=== PATIENT | male | born 1935 | race Caucasian/White ===

== ENCOUNTER 2017-03-22 02:30 | Emergency (ER) | payer MEDICARE ==
[2017-03-22 03:17] LABS: #Basophils 0.1 thou/uL (0.0-0.2); #Eosinphils 0.2 thou/uL (0.0-0.7); #Lymphocytes 2.1 thou/uL (1.20-3.40); #Monocytes 0.7 thou/uL (0.11-0.59); #Neutrophils 3.1 thou/uL (1.40-6.50); %Basophils 1.1 % (0.0-1.0); %Eosinophils 2.6 % (0.0-10.0); %Lymphocytes 34.3 % (21.0-51.0); %Monocytes 11.5 % (0.0-10.0); %Neutrophils 50.5 % (42.0-75.0); Mean Corpuscular HGB CONC 33.1 g/dL (32.0-36.0); Mean Corpuscular Hemoglobin 31.9 pg (27.0-31.0); Mean Corpuscular Volume 96.6 fl (80.0-94.0); Mean Platelet Volume 7.3 fL (7.4-10.4); Platelet Count 213 thou/uL (130-400); RBC Distribution Width 11.7 % (11.5-14.5); Red Blood Cell (RBC) Count 4.69 mill/uL (4.70-6.10); White Blood Cell (WBC) Count 6.1 thou/uL (4.8-10.8)
[2017-03-22 03:40] LABS: ALT (SGPT) 14 U/L (8-55); AST (SGOT) 18 U/L (5-34); Albumin 3.6 g/dL (3.4-4.8); Alkaline Phosphatase 92 U/L (40-150); Anion Gap 9 mmol/L (10-20); BUN (Urea Nitrogen) 13 mg/dL (8.4-25.7); CK (CPK) 95 U/L (30-200); Calc. Creatinine Clearance 0 mL/min (70-130); Calcium 9.1 mg/dL (7.8-10.44); Carbon Dioxide 28 mmol/L (23-31); Chloride 107 mmol/L (98-107); Estimated GFR-MDRD Greater than 90; Globulin 2.6 g/dL (2.4-3.5); Glucose 96 mg/dL (83-110); Potassium 4.1 mmol/L (3.5-5.1); Protein, Total 6.2 g/dL (5.8-8.1); Sodium 140 mmol/L (136-145)
[2017-03-22 03:44] LABS: CKMB 3.4 ng/mL (0-6.6); Troponin I Less than 0.010 ng/mL (< 0.028)
--- NOTE | 2017-03-22 07:57 | ULT ---
PRELIMINARY REPORT/[facility]/EMERGENCY AFTER HOURS PROCEDURE: EXAM: US Duplex Left Lower Extremity Veins CLINICAL HISTORY: 81 years old, male; Pain; Other: Lt lower leg pain, swelling TECHNIQUE: Real-time ultrasound scan of the veins of the left lower extremity with color Doppler flow, spectral waveform analysis and compression. COMPARISON: No relevant prior studies available. FINDINGS: Deep veins: Unremarkable. No DVT in the visualized common femoral, femoral, proximal deep femoral or popliteal veins. The veins demonstrate normal color flow, are normally compressible, with normal phas ic flow and/or augmentation response. Superficial veins: Unremarkable. No thrombus in the visualized great saphenous vein. Soft tissues: No acute findings. No popliteal cyst. IMPRESSION: Normal left lower extremity duplex venous ultrasound. Thank you for allowing us to participate in the care of your patient. Dictated and Authenticated by: Rom Whittaker MD 03/22/2017 6:51 AM Central Time ([place] & [place]) FINAL REPORT LEFT LOWER EXTREMITY ULTRASOUND; I agree with the preliminary interpretation provided above. FINDINGS/IMPRESSION: No evidence of DVT. POS: [facility]
== END 2017-03-22 06:55 | disposition home or self-care (01) ==
LOC: ERS 02:30
DX: M79.662 Pain in left lower leg (principal); R60.0 Localized edema; N40.0 Benign prostatic hyperplasia without lower urinary tract symptoms; E78.5 Hyperlipidemia, unspecified; F32.9 Major depressive disorder, single episode, unspecified; Z87.891 Personal history of nicotine dependence
CPT/HCPCS: 36415; 80053; 82550; 82553; 83880; 84484; 85025

== ENCOUNTER 2017-03-24 20:17 | Emergency (ER) | payer MEDICARE ==
[2017-03-24] MEDS ORDERED: Ketorolac Tromethamine 30 MG/ML VIAL ONE (21:46)
--- NOTE | 2017-03-24 21:47 | RAD ---
LEFT KNEE FOUR VIEWS 03/24/17 HISTORY: Left knee pain, fall. FINDINGS/IMPRESSION: Degenerative changes are present. No acute fracture or dislocation is identified. No joint effusion i s seen. There is soft tissue swelling in the prepatellar region. POS: [facility]
== END 2017-03-24 22:00 | disposition home or self-care (01) ==
LOC: ERS 20:17
DX: S80.02XA Contusion of left knee, initial encounter (principal); E78.5 Hyperlipidemia, unspecified; F32.9 Major depressive disorder, single episode, unspecified; Z79.899 Other long term (current) drug therapy; W01.0XXA Fall on same level from slipping, tripping and stumbling without subsequent striking against object, initial encounter
CPT/HCPCS: 96372; J1885

== ENCOUNTER 2017-05-08 15:04 | Inpatient (IN) | payer MEDICARE, MEDICAID ==
[2017-05-08 15:32] LABS: #Basophils 0.1 thou/uL (0.0-0.2); #Eosinphils 0.2 thou/uL (0.0-0.7); #Lymphocytes 1.9 thou/uL (1.20-3.40); #Monocytes 0.7 thou/uL (0.11-0.59); #Neutrophils 3.3 thou/uL (1.40-6.50); %Basophils 1.1 % (0.0-1.0); %Eosinophils 3.2 % (0.0-10.0); %Lymphocytes 30.7 % (21.0-51.0); %Monocytes 10.7 % (0.0-10.0); %Neutrophils 54.3 % (42.0-75.0); Hemoglobin 16.8 g/dL (14.0-18.0); Mean Corpuscular HGB CONC 32.2 g/dL (32.0-36.0); Mean Corpuscular Hemoglobin 30.8 pg (27.0-31.0); Mean Corpuscular Volume 95.7 fl (80.0-94.0); Mean Platelet Volume 7.2 fL (7.4-10.4); Platelet Count 239 thou/uL (130-400); RBC Distribution Width 12.2 % (11.5-14.5); Red Blood Cell (RBC) Count 5.45 mill/uL (4.70-6.10); White Blood Cell (WBC) Count 6.2 thou/uL (4.8-10.8)
--- NOTE | 2017-05-08 16:11 | RAD ---
PORTABLE CHEST ONE VIEW 05/08/17 at 3:52 p.m. HISTORY: Altered mental status, headache, weakness. FINDINGS: The heart size is normal. The lungs are well expanded without focal areas of consolidation, pneumotho rax or pleural effusions. IMPRESSION: No radiographic evidence of acute cardiopulmonary process. POS: [facility]
[2017-05-08 16:52] LABS: ALT (SGPT) 18 U/L (8-55); AST (SGOT) 15 U/L (5-34); Albumin 3.3 g/dL (3.4-4.8); Alkaline Phosphatase 102 U/L (40-150); Anion Gap 7 mmol/L (10-20); BUN (Urea Nitrogen) 17 mg/dL (8.4-25.7); Bilirubin, Total 0.7 mg/dL (0.2-1.2); Calc. Creatinine Clearance 0 mL/min (70-130); Calcium 8.6 mg/dL (7.8-10.44); Carbon Dioxide 27 mmol/L (23-31); Chloride 110 mmol/L (98-107); Estimated GFR-MDRD Greater than 90; Globulin 2.5 g/dL (2.4-3.5); Glucose 102 mg/dL (83-110); Potassium 3.8 mmol/L (3.5-5.1); Protein, Total 5.8 g/dL (5.8-8.1); Sodium 140 mmol/L (136-145)
[2017-05-08 16:56] LABS: CKMB 1.6 ng/mL (0-6.6); Troponin I Less than 0.010 ng/mL (< 0.028)
--- NOTE | 2017-05-08 17:01 | CT ---
EXAM: NONCONTRAST HEAD CT 05/08/17 HISTORY: Altered mental status. Generalized weakness and headache. COMPARISON: 03/12/15. TECHNIQUE: Noncontrast head CT is performed from skull base to skull vertex. FINDINGS: No parenchymal hemorrhage. No extra-axial hematoma. No midline shift. Basilar cisterns are patent. Br ain volume is age appropriate. Cortical hassan-white matter differentiation is preserved. Ventricles and sulci are patent and symmetric. The calvarium is intact. Adequate aeration of the sinuses and mastoid air cells. IMPRESSION: No acute intracranial process. POS: [facility]
[2017-05-08 17:23] LABS: Bilirubin Small (Negative); Blood, Urine Negative (Negative); Clarity CLOUDY (Clear); Glucose, Urine (Dipstick) Negative (Negative); Leukocyte Negative (Negative); Nitrite Negative (Negative); Protein, Urine (Dipstick) Negative (Neg-Trace); Specific Gravity, Urine 1.023 (1.002-1.036)
[2017-05-08] MEDS ORDERED: HYDROcodone/Acetaminophen 5/325 mg Tablet ONE (19:48)
[2017-05-08] MEDS ORDERED: Ondansetron HCl/PF 4 MG/2 ML Vial IVP PRN ×2 (20:20→22:07)
[2017-05-08] MEDS ORDERED: Ondansetron ODT 4 MG TAB SL PRN (20:20)
[2017-05-08] MEDS ORDERED: Sodium Chloride 0.45% 1,000 ML IV SCH (20:30)
[2017-05-08 20:46] VITALS: BMI 23.8
[2017-05-08] MEDS ORDERED: Senokot 8.6 MG TAB PO PRN (22:07)
[2017-05-08] MEDS ORDERED: Ondansetron ODT 4 MG TAB PO PRN (22:07)
[2017-05-08] MEDS ORDERED: Acetaminophen 325 MG TAB PO PRN (22:07)
[2017-05-08] MEDS ORDERED: hydrALAZINE 20 MG/ML VIAL SLOW IVP PRN (22:12)
--- NOTE | 2017-05-08 22:16 | PDOC.EVN ---
Event Note - Event Note Event Note: Patient seen and examined. Note dictated. Full code. DPOA - spouse.
[2017-05-08] MEDS: Sodium Chloride 0.45% 1,000 ML IV SCH (22:29)
--- NOTE | 2017-05-08 22:43 | HP ---
DATE OF ADMISSION: 05/08/2017 PRIMARY CARE PHYSICIAN: Dr. Gamez. PRIMARY NEUROLOGIST: Dr. Pathak. CHIEF COMPLAINT: Altered mentation/abnormal behavior. HISTORY OF PRESENT ILLNESS: The patient is an 81-year-old male with recent diagnosis of frontotempor al dementia, who was brought in to the emergency room by his with abnormal behavior. The patient was evaluated by Dr. Pathak earlier this month and was diagnosed with frontotemporal dem entia. PET scan scheduled on of 06/16/2016. At this time, there is no family at the bedside. Histo ry is limited. According to Dr. Pathak's office record, he had some personality changes since 2008 that is worsening. He has been aggressive intermittently. He had several anger episodes for no appa rent reason. The spouse has also called police on several occasions. There is no fever, chills, rec ent fall or seizure reported. No focal neurologic deficit reported. In the emergency room, a CT scan of the brain was negative for acute CVA. Urinalysis and chest x-ray was negative. He was found to be dehydrated and was started on IV fluids. PAST MEDICAL HISTORY: 1. Recent diagnosis of frontotemporal dementia. 2. Hypertension. 3. Dyslipidemia. 4. Depression. 5. History of nephrolithiasis. PAST SURGICAL HISTORY: 1. Lipoma removal x2. 2. TURP x2. 3. Tonsillectomy. 4. Lithotripsy. ALLERGIES: No known drug allergies. HOME MEDICATIONS: To be verified with the spouse. Apparently the spouse was taken to the emergency room for chest pain. SOCIAL HISTORY: The patient is , former smoker and drinks alcohol socially, no illicit drugs. FAMILY HISTORY: Negative for heart disease, stroke or cancer per previous record. REVIEW OF SYSTEMS: Limited due to patient's cognitive status. PHYSICAL EXAMINATION: VITAL SIGNS: In the emergency room showed temperature 98.7, respirations 20, blood pressure 123/70, O2 saturation 98% on room air. GENERAL: An 81-year-old male, in no apparent distress. Appears comfortable. HEENT: Head atraumatic, normocephalic. Sclerae are anicteric. Dry mucous membranes. No oral lesio n. NECK: Supple, no JVD appreciated. No carotid bruit. LUNGS: Essentially clear to auscultation bilaterally. No wheezing or rales. HEART: S1, S2 present. Regular rate and rhythm. No murmur, rubs, or gallops appreciated. ABDOMEN: Soft, nontender, bowel sounds present. EXTREMITIES: No edema or calf tenderness. NEUROLOGIC: The patient is alert, awake, oriented x3. He had some headache earlier that has resolve d per patient report. His speech is normal. Cranial nerves II-XII were normal on examination. Miki r was 5/5 in all extremities. Kdsyhp-jy-kcmg test was normal. Gait was not assessed. Sensation to touch was normal bilaterally. PSYCHIATRIC: The patient is alert, awake, oriented x3. Normal affect. His recent memory appears to be intact. SKIN: Warm and dry. LYMPH NODES: No palpable lymph nodes in the neck. PERIPHERAL VASCULAR: Radial pulses palpable bilaterally. MUSCULOSKELETAL: No joint swelling or tenderness. LABORATORY DATA AND X-RAY FINDINGS: Urinalysis was normal. Chest x-ray by my review was negative fo r acute findings. EKG by my review showed sinus rhythm without significant ST-T wave changes. WBC c ount was 6.2 with hemoglobin 16.8, platelet count 239. Troponins were negative. BUN was 17, creatin ine was 0.7, sodium 140, potassium 3.8, chloride 110. EKG and chest x-ray by my review as discussed above. IMPRESSION: 1. Abnormal behavior/encephalopathy, probably secondary to underlying frontotemporal dementia. 2. Dehydration. 3. Anxiety, depression. 4. Hypertension. 5. Dyslipidemia. 6. Benign prostatic hypertrophy. 7. Macrocytosis with MCV of 95.8. Rule out vitamin B12 deficiency. PLAN: The patient is currently admitted in the stroke unit. Neurology will be consulted. We will c ontinue IV fluids for dehydration. We will check folic acid and vitamin B12 level in a.m. We will r esume home medications once confirmed with his spouse. Frequent neuro checks. Plan of care was discussed with the patient. He stated understanding.
[2017-05-09] MEDS ORDERED: HYDROcodone/Acetaminophen 5/325 mg Tablet PO PRN ×2 (00:37→14:46)
[2017-05-09 05:39] LABS: Folate (Folic Acid) 13.2 ng/mL (7.0-31.4)
--- NOTE | 2017-05-09 08:20 | PDOC.PN ---
- Subjective Encounter Start Date: 05/09/17 Encounter Start Time: 08:18 Subjective: Seen and examined no new complaint - Objective Resuscitation Status: Resuscitation Status FULL:Full Resuscitation Vital Signs & Weight: Vital Signs (12 hours) Temp Pulse Resp BP BP Pulse Ox 05/09/17 03:39 97.7 F 66 18 110/62 97 05/09/17 00:10 98.0 F 71 18 129/77 96 05/08/17 20:20 97.8 F 68 18 95 Weight Weight 176 lb I&O: 05/08/17 05/09/17 05/10/17 06:59 06:59 06:59 Intake Total 1500 Output Total 1300 Balance 200 Result Diagrams: 05/08/17 15:26 05/08/17 16:24 Phys Exam - Physical Examination Constitutional: NAD HEENT: PERRLA, moist MMs, sclera anicteric, TM's clear Neck: no nodes, no JVD, supple, full ROM Respiratory: no wheezing, no rales, no rhonchi, clear to auscultation bilateral Cardiovascular: RRR, no significant murmur, no rub Gastrointestinal: soft, non-tender, no distention, positive bowel sounds Dx/Plan (1) Altered mental status, unspecified Code(s): R41.82 - ALTERED MENTAL STATUS, UNSPECIFIED Status: Acute (2) Dyslipidemia Code(s): E78.5 - HYPERLIPIDEMIA, UNSPECIFIED Status: Acute (3) BPH (benign prostatic hyperplasia) Code(s): N40.0 - BENIGN PROSTATIC HYPERPLASIA WITHOUT LOWER URINRY TRACT SYMP Status: Chronic (4) Depression Code(s): F32.9 - MAJOR DEPRESSIVE DISORDER, SINGLE EPISODE, UNSPECIFIED Status : Chronic - Plan plan discussed w/ family, PT/OT, child protective services social worker Needs placement -: Case management consult and Neurology consult pending -: finding it extremely difficult to take care of him at home * .
[2017-05-09] MEDS: Sodium Chloride 0.45% 1,000 ML IV SCH (10:07)
--- NOTE | 2017-05-09 10:15 | PRG ---
DATE OF SERVICE: 05/09/2017 IMPRESSION: 1. Dementia with inappropriate behavior and incontinence. 2. Hyperlipidemia. PLAN: [facility] placement. Mr. Davis is an 81-year-old gentleman, who was recently evaluated in the office. His reports that he has had some inappropriate behavior for the last 2 or more years. He has been incontinent of urine and has to wear diaper. He has been incontinent of feces on occasion. She reports that he te nds to sleep on the floor and does not act in appropriate manner. Generally, he has been a bit jesus gerent with her and had some violent outbursts. She is a bit fearful for her safety as a result of h is behavior. He was brought into the emergency room yesterday due to her difficulties finding placem ent. He had a CT scan of the brain done, which was unremarkable other than routine aging changes. H is laboratory studies were also unremarkable including urinalysis, chemistry and CBC. His vital sign s have been stable and he is afebrile. He is without any particular complaints this morning. His ex am is nonfocal. He is alert and appropriate. He is cooperative and answered questions in appropriat e manner. He does not have any issues in regards to being transferred to a senior living. No acute issues present at this point. PET scan was pending to further evaluate his cognitive change s. I suspect that he may have some frontotemporal dementia, senior living placement seems appropriate .
[2017-05-09] MEDS: Famotidine 20 MG TAB PO SCH ×2 (10:37→20:48)
[2017-05-09] MEDS: Enoxaparin Sodium 40 MG/0.4 ML SYRINGE SC SCH (10:37)
[2017-05-09] MEDS: Docusate 100 MG CAP PO SCH ×2 (10:38→20:48)
[2017-05-09] MEDS: HYDROcodone/Acetaminophen 5/325 mg Tablet PO PRN ×2 (15:20→21:11)
[2017-05-10 05:05] LABS: #Eosinphils 0.2 thou/uL (0.0-0.7); #Lymphocytes 2.4 thou/uL (1.20-3.40); #Monocytes 0.8 thou/uL (0.11-0.59); #Neutrophils 3.1 thou/uL (1.40-6.50); %Basophils 0.6 % (0.0-1.0); %Eosinophils 3.6 % (0.0-10.0); %Lymphocytes 36.8 % (21.0-51.0); %Monocytes 12.6 % (0.0-10.0); %Neutrophils 46.4 % (42.0-75.0); Hemoglobin 14.3 g/dL (14.0-18.0); Mean Corpuscular HGB CONC 33.1 g/dL (32.0-36.0); Mean Corpuscular Hemoglobin 31.4 pg (27.0-31.0); Mean Corpuscular Volume 94.8 fl (80.0-94.0); Mean Platelet Volume 7.1 fL (7.4-10.4); Platelet Count 202 thou/uL (130-400); RBC Distribution Width 11.9 % (11.5-14.5); Red Blood Cell (RBC) Count 4.56 mill/uL (4.70-6.10); White Blood Cell (WBC) Count 6.6 thou/uL (4.8-10.8)
[2017-05-10 05:17] LABS: Anion Gap 5 mmol/L (10-20); BUN (Urea Nitrogen) 12 mg/dL (8.4-25.7); Calc. Creatinine Clearance 96 mL/min (70-130); Calcium 8.8 mg/dL (7.8-10.44); Carbon Dioxide 31 mmol/L (23-31); Chloride 107 mmol/L (98-107); Estimated GFR-MDRD Greater than 90; Glucose 94 mg/dL (83-110); Magnesium 2.1 mg/dL (1.6-2.6); Potassium 3.8 mmol/L (3.5-5.1); Sodium 139 mmol/L (136-145)
[2017-05-10] MEDS: Docusate 100 MG CAP PO SCH ×2 (08:51→20:00)
[2017-05-10] MEDS: Famotidine 20 MG TAB PO SCH ×2 (08:52→20:00)
[2017-05-10] MEDS: HYDROcodone/Acetaminophen 5/325 mg Tablet PO PRN ×2 (08:53→22:17)
[2017-05-10] MEDS: Enoxaparin Sodium 40 MG/0.4 ML SYRINGE SC SCH (08:56)
--- NOTE | 2017-05-10 12:17 | PRG ---
DATE OF SERVICE: 05/10/2017 SUBJECTIVE: The patient was seen and examined at bedside. He is doing quite well. He is able to an swer my questions, although there is his in the room during my visit. His appetite is fair. He does not have much complaints to offer. OBJECTIVE: VITAL SIGNS: Blood pressure is 124/79, pulse is 67, temperature 97.6, respiratory rate is 20, and O2 saturation is 97% on room air. HEENT: Atraumatic, normocephalic. Eyes: PERRLA. Conjunctivae pinkish. Oral mucosa is moist. NECK: Supple, no JVD. LUNGS: Clear. HEART: S1, S2 normal. No S3, no S4, no any murmur. ABDOMEN: Soft, nontender, bowel sounds are present. No organomegaly. EXTREMITIES: No clubbing, cyanosis or edema. NEUROLOGIC: He is alert and oriented x4. There are not any sensory or motor deficits. Cranial nerv es are intact. LABORATORY DATA: Showed white count of 6.6, hemoglobin 14.3, hematocrit 42.2, platelet count is 202. Normal electrolytes and normal kidney function. His vitamin B12 is 212, folic acid 13.20. IMPRESSION: 1. Most likely frontotemporal dementia with burst of altered mental status and inappropriate social behavior. 2. Benign prostatic hypertrophy. 3. Dyslipidemia. 4. Depression. 5. Vitamin B12 deficiency. PLAN: Plan is to arrange a [facility] facility where he can reside since his is not able t o take care of him at home. We will start and continue B12 injections since he is deficient of B12 a nd will continue on DVT prophylaxis, and as soon as he is setup for the [facility], he will be disc harged from the hospital.
[2017-05-10] MEDS ORDERED: Cyanocobalamin 1000 MCG/ML VIAL IM SCH (12:30)
[2017-05-11] MEDS: Aripiprazole 10 MG TAB PO SCH (08:40)
[2017-05-11] MEDS: Famotidine 20 MG TAB PO SCH ×2 (08:40→21:30)
[2017-05-11] MEDS: Docusate 100 MG CAP PO SCH ×2 (08:41→21:29)
[2017-05-11] MEDS: Finasteride 5 MG TAB PO SCH (08:41)
[2017-05-11] MEDS: Furosemide 20 MG TAB PO SCH (08:41)
[2017-05-11] MEDS: Multivitamin W/ Minerals 1 TAB PO SCH (08:42)
[2017-05-11] MEDS: Enoxaparin Sodium 40 MG/0.4 ML SYRINGE SC SCH (08:42)
[2017-05-11] MEDS ORDERED: FLUoxetine HCl 20 MG CAP PO SCH (09:00)
[2017-05-11] MEDS ORDERED: Tamsulosin HCl 0.4 MG CAP PO SCH (09:00)
[2017-05-11] MEDS: Terbinafine 250 MG TAB PO SCH (10:14)
[2017-05-11] MEDS: Naproxen 500 MG TAB PO PRN ×2 (11:39→21:30)
--- NOTE | 2017-05-11 17:56 | PDOC.PN ---
- Subjective Encounter Start Date: 05/11/17 Encounter Start Time: 10:00 Patient seen and examined. No new complaints. No overnight events - Objective Resuscitation Status: Resuscitation Status DNR:Do Not Resuscitate MAR Reviewed: Yes Vital Signs & Weight: Vital Signs (12 hours) Temp Pulse Resp BP Pulse Ox 05/11/17 16:00 97.3 F L 71 16 134/85 98 05/11/17 12:00 98.4 F 69 16 129/74 96 05/11/17 08:00 98.0 F 74 20 05/11/17 07:52 98.0 F 74 20 136/81 97 Weight Weight 177 lb 1.6 oz I&O: 05/10/17 05/11/17 05/12/17 06:59 06:59 06:59 Intake Total 1840 2220 720 Balance 1840 2220 720 Result Diagrams: 05/10/17 04:04 05/10/17 04:04 Phys Exam - Physical Examination Constitutional: NAD Respiratory: no wheezing, no rhonchi Cardiovascular: RRR, no rub Gastrointestinal: soft, non-tender, positive bowel sounds Musculoskeletal: no edema Neurological: non-focal, moves all 4 limbs Dx/Plan - Plan DVT proph w/SCDs IMPRESSION: 1. Abnormal behavior/encephalopathy, probably secondary to underlying frontotemporal dementia. 2. Dehydration. 3. Anxiety, depression. 4. Hypertension. 5. Dyslipidemia. 6. Benign prostatic hypertrophy. 7. Vitamin B12 deficiency. PLAN: * Await Placement * Cont Abilify * Cont to monitor * DC Prozac - Patient does not take this at home * Cont current meds as below * Cont Vit B12 replacement Review of Systems - Review of Systems Respiratory: negative: Cough, Dry, Shortness of Breath, Hemoptysis, SOB with Excertion, Pleuritic Pain, Sputum, Wheezing Cardiovascular: negative: chest pain, palpitations, orthopnea, paroxysmal nocturnal dyspnea, edema, light headedness - Medications/Allergies Allergies/Adverse Reactions: Allergies Allergy/AdvReac Type Severity Reaction Status Date / Time No Known Drug Allergies Allergy Verified 05/08/17 22:12 Medications: Current Medications Acetaminophen (Tylenol) 650 mg PO Q4H PRN PRN Reason: Headache/Fever or Pain Hydrocodone Bitart/Acetaminophen ([place] 5/325) 1 tab PO Q6H PRN PRN Reason: Moderate Pain (4-6) Last Admin: 05/10/17 22:17 Dose: 1 tab Aripiprazole (Abilify) 5 mg PO DAILY [facility] Last Admin: 05/11/17 08:40 Dose: 5 mg Cyanocobalamin (Vitamin B-12) 1,000 mcg IM Q7DAYS@0900 [facility] Docusate Sodium (Colace) 100 mg PO BID [facility] Last Admin: 05/11/17 08:41 Dose: 100 mg Enoxaparin Sodium (Lovenox) 40 mg SC 0900 [facility] Last Admin: 05/11/17 08:42 Dose: 40 mg Famotidine (Pepcid) 20 mg PO BID [facility] Last Admin: 05/11/17 08:40 Dose: 20 mg Finasteride (Proscar) 5 mg PO DAILY [facility] Last Admin: 05/11/17 08:41 Dose: 5 mg Furosemide (Lasix) 20 mg PO DAILY [facility] Last Admin: 05/11/17 08:41 Dose: 20 mg Hydralazine HCl (Apresoline) 10 mg SLOW IVP Q4H PRN PRN Reason: SBP Greater Than 180 Iron/Minerals/Multivitamins (Theragran M) 1 tab PO DAILY [facility] Last Admin: 05/11/17 08:42 Dose: 1 tab Naproxen (Naprosyn) 500 mg PO BIDPRN PRN PRN Reason: Mild-Moderate Pain (1-5) Last Admin: 05/11/17 11:39 Dose: 500 mg Ondansetron HCl (Zofran Odt) 4 mg PO Q6H PRN PRN Reason: Nausea/Vomiting Ondansetron HCl (Zofran) 4 mg IVP Q6H PRN PRN Reason: Nausea/Vomiting Senna (Senokot) 2 tab PO HSPRN PRN PRN Reason: Constipation Sodium Chloride (Flush - Normal Saline) 10 ml IVF Q12HR [facility] Last Admin: 05/11/17 08:42 Dose: 10 ml Sodium Chloride (Flush - Normal Saline) 10 ml IVF PRN PRN PRN Reason: Saline Flush Tamsulosin HCl (Flomax) 0.4 mg PO HS [facility] Terbinafine HCl (Lamisil) 250 mg PO DAILY [facility] Last Admin: 05/11/17 10:14 Dose: Not Given
[2017-05-11] MEDS: Tamsulosin HCl 0.4 MG CAP PO SCH (21:30)
[2017-05-12] MEDS: Enoxaparin Sodium 40 MG/0.4 ML SYRINGE SC SCH (08:28)
[2017-05-12] MEDS: Multivitamin W/ Minerals 1 TAB PO SCH (08:29)
[2017-05-12] MEDS: Furosemide 20 MG TAB PO SCH (08:29)
[2017-05-12] MEDS: Docusate 100 MG CAP PO SCH ×2 (08:29→20:23)
[2017-05-12] MEDS: Terbinafine 250 MG TAB PO SCH (08:30)
[2017-05-12] MEDS: Aripiprazole 10 MG TAB PO SCH (08:30)
[2017-05-12] MEDS: Famotidine 20 MG TAB PO SCH ×2 (08:30→20:23)
[2017-05-12] MEDS: Finasteride 5 MG TAB PO SCH (08:30)
[2017-05-12] MEDS: Cyanocobalamin (Vitamin B-12) 1,000 MCG TAB PO SCH (08:31)
--- NOTE | 2017-05-12 15:41 | PDOC.PN ---
- Subjective Encounter Start Date: 05/12/17 Encounter Start Time: 10:30 Patient seen and examined. No new complaints. No overnight events - Objective Resuscitation Status: Resuscitation Status DNR:Do Not Resuscitate MAR Reviewed: Yes Vital Signs & Weight: Vital Signs (12 hours) Temp Pulse Resp BP Pulse Ox 05/12/17 15:34 97.7 F 76 18 103/62 97 05/12/17 11:43 97.6 F 78 20 101/70 94 L 05/12/17 08:42 97.6 F 64 20 95 05/12/17 08:00 97.6 F 64 20 109/50 L 95 05/12/17 04:06 97.8 F 67 14 116/61 98 Weight Weight 172 lb 14.4 oz I&O: 05/11/17 05/12/17 05/13/17 06:59 06:59 06:59 Intake Total 2220 2540 Balance 2220 2540 Result Diagrams: 05/10/17 04:04 05/10/17 04:04 EKG Reviewed by me: Yes (Tele SR) Phys Exam - Physical Examination Constitutional: NAD Respiratory: no wheezing, no rhonchi Cardiovascular: RRR, no rub Gastrointestinal: soft, non-tender, positive bowel sounds Musculoskeletal: no edema Neurological: moves all 4 limbs Dx/Plan - Plan DVT proph w/SCDs IMPRESSION: 1. Abnormal behavior/encephalopathy, probably secondary to underlying frontotemporal dementia. 2. Dehydration. 3. Anxiety, depression. 4. Hypertension. 5. Dyslipidemia. 6. Benign prostatic hypertrophy. 7. Vitamin B12 deficiency. PLAN: * Cont Abilify/Vit B12 replacement * Await Placement * Cont to monitor * Cont current meds as below Review of Systems - Review of Systems Respiratory: negative: Cough, Dry, Shortness of Breath, Hemoptysis, SOB with Excertion, Pleuritic Pain, Sputum, Wheezing Cardiovascular: negative: chest pain, palpitations, orthopnea, paroxysmal nocturnal dyspnea, edema, light headedness - Medications/Allergies Allergies/Adverse Reactions: Allergies Allergy/AdvReac Type Severity Reaction Status Date / Time No Known Drug Allergies Allergy Verified 05/08/17 22:12 Medications: Current Medications Acetaminophen (Tylenol) 650 mg PO Q4H PRN PRN Reason: Headache/Fever or Pain Hydrocodone Bitart/Acetaminophen ([place] 5/325) 1 tab PO Q6H PRN PRN Reason: Moderate Pain (4-6) Last Admin: 05/10/17 22:17 Dose: 1 tab Aripiprazole (Abilify) 5 mg PO DAILY [facility] Last Admin: 05/12/17 08:30 Dose: 5 mg Cyanocobalamin (Vitamin B-12) 1,000 mcg PO DAILY [facility] Last Admin: 05/12/17 08:31 Dose: 1,000 mcg Docusate Sodium (Colace) 100 mg PO BID [facility] Last Admin: 05/12/17 08:29 Dose: 100 mg Enoxaparin Sodium (Lovenox) 40 mg SC 0900 [facility] Last Admin: 05/12/17 08:28 Dose: 40 mg Famotidine (Pepcid) 20 mg PO BID [facility] Last Admin: 05/12/17 08:30 Dose: 20 mg Finasteride (Proscar) 5 mg PO DAILY [facility] Last Admin: 05/12/17 08:30 Dose: 5 mg Furosemide (Lasix) 20 mg PO DAILY [facility] Last Admin: 05/12/17 08:29 Dose: 20 mg Hydralazine HCl (Apresoline) 10 mg SLOW IVP Q4H PRN PRN Reason: SBP Greater Than 180 Iron/Minerals/Multivitamins (Theragran M) 1 tab PO DAILY [facility] Last Admin: 05/12/17 08:29 Dose: 1 tab Naproxen (Naprosyn) 500 mg PO BIDPRN PRN PRN Reason: Mild-Moderate Pain (1-5) Last Admin: 05/11/17 21:30 Dose: 500 mg Ondansetron HCl (Zofran Odt) 4 mg PO Q6H PRN PRN Reason: Nausea/Vomiting Ondansetron HCl (Zofran) 4 mg IVP Q6H PRN PRN Reason: Nausea/Vomiting Senna (Senokot) 2 tab PO HSPRN PRN PRN Reason: Constipation Sodium Chloride (Flush - Normal Saline) 10 ml IVF Q12HR [facility] Last Admin: 05/12/17 08:31 Dose: 10 ml Sodium Chloride (Flush - Normal Saline) 10 ml IVF PRN PRN PRN Reason: Saline Flush Tamsulosin HCl (Flomax) 0.4 mg PO HS [facility] Last Admin: 05/11/17 21:30 Dose: 0.4 mg Terbinafine HCl (Lamisil) 250 mg PO DAILY [facility] Last Admin: 05/12/17 08:30 Dose: 250 mg
[2017-05-12] MEDS: Tamsulosin HCl 0.4 MG CAP PO SCH (20:23)
[2017-05-13] MEDS: Terbinafine 250 MG TAB PO SCH (08:12)
[2017-05-13] MEDS: Finasteride 5 MG TAB PO SCH (08:13)
[2017-05-13] MEDS: Furosemide 20 MG TAB PO SCH (08:13)
[2017-05-13] MEDS: Multivitamin W/ Minerals 1 TAB PO SCH (08:13)
[2017-05-13] MEDS: Famotidine 20 MG TAB PO SCH (08:13)
[2017-05-13] MEDS: Docusate 100 MG CAP PO SCH (08:14)
[2017-05-13] MEDS: Cyanocobalamin (Vitamin B-12) 1,000 MCG TAB PO SCH (08:14)
[2017-05-13] MEDS: Enoxaparin Sodium 40 MG/0.4 ML SYRINGE SC SCH (08:15)
[2017-05-13] MEDS: Aripiprazole 10 MG TAB PO SCH (08:15)
[2017-05-13 11:47] VITALS: BP 120/76; TEMP 98
--- NOTE | 2017-05-13 22:01 | DIS ---
DATE OF ADMISSION: 05/08/2017 DATE OF DISCHARGE: 05/13/2017 DISCHARGE DISPOSITION: Health system. ALLERGIES: No known drug allergies. The patient was seen and examined on the day of discharge. Denies any new complaints. No chest pain , shortness of breath, palpitations. DISCHARGE MEDICATIONS: Abilify 5 mg daily, vitamin B12 1000 mcg daily, Colace 100 mg b.i.d., finaste ride 5 mg daily, Lasix 20 mg daily, multivitamin 1 tablet daily, naproxen as needed, Flomax 0.4 mg da flores, Lamisil 250 mg daily. BRIEF HOSPITAL COURSE: The patient is an 81-year-old male with recent diagnosis of frontotemporal de mentia who presented to the emergency room with altered mentation/abnormal behavior. Please refer to the history and physical dated 05/08/2017 for further details. The patient was admitted to the hospital with the above diagnosis. The patient was evaluated by Neur ology, Dr. Pathak, who recommended to continue Abilify. He was also found to have low vitamin B12 a t 219 for which he was started on vitamin B12 replacement. He will be discharged to [facility] for rehabilitation. He will follow up with Dr. Pathak as outpatient. He is scheduled for a PET scan on 06/16/2017 for frontotemporal dementia. FINAL DIAGNOSES: 1. Abnormal behavior/encephalopathy, probably secondary to underlying frontotemporal dementia. 2. Dehydration on admission, resolved. 3. Anxiety and depression. 4. Hypertension 5. Dyslipidemia. 6. Benign prostatic hypertrophy. 7. Vitamin B12 deficiency. Plan of care was discussed with the patient and the family at the bedside. They stated understanding .
--- NOTE | 2017-05-15 12:02 | PQF ---
ADIS LYNN MALIK MD [id number] [facility] [id number] CLINICAL DOCUMENTATION CLARIFICATION FORM: POST DISCHARGE Addendum to original discharge summary date: 05/13/2017 DATE: 05/15/2017 ATTN: Dr. Lowe Please exercise your independent, professional judgment in responding to the clarification form. Clinical indicators are provided on the bottom of this form for your review Please check appropriate box(s): [ x ] Encephalopathy: Type: [ x ] Acute [ ] Subacute [ ] Chronic Etiology: [ ] Metabolic [ ] Toxic [ x ] due to progressive frontotemporal dementia [ ] Unspecified [ ] Other diagnosis (please specify) [ ] Unable to determine In addition, please specify: Present on Admission (POA): [ x ] Yes [ ] No [ ] Unable to determine For continuity of documentation, please document condition throughout progress notes and discharge summary. Thank You. CLINICAL INDICATORS - SIGNS / SYMPTOMS / LABS (per H&P) Altered mental status / abnormal behavior. Frontotemporal dementia with intermittent aggression. RISK FACTORS (Per H&P/Progress Notes) Frontotemporal dementia. Dehydration. TREATMENTS: (Per Progress Notes) Neurology evaluation with recommendation to continue Abilify. IV Fluids. (This form is maintained as a part of the permanent medical record) 2014 [employer] All Rights Reserved Jeanette [email or web address] [phone] MTDD
[2017-05-17] MEDS ORDERED: Cyanocobalamin 1000 MCG/ML VIAL IM SCH ×2 (09:00)
--- NOTE | 2017-05-23 19:56 | EKG ---
Test Reason : Blood Pressure : / mmHG Vent. Rate : 073 BPM Atrial Rate : 073 BPM P-R Int : 184 ms QRS Dur : 082 ms QT Int : 374 ms P-R-T Axes : 065 010 076 degrees QTc Int : 412 ms Normal sinus rhythm Normal ECG Confirmed by SANJIV WEINBERG ([id number]), editorial assistant PAUL BERNSTEIN ([id number]) on 05/23/2017 7:55:17 PM Referred By: Confirmed By:SANJIV WEINBERG
== END 2017-05-13 14:51 | DRG 56 ==
LOC: ERS 15:04 → 2SE 18:33
PROVIDERS: ADMIT Family Medicine; ATTEND Family Medicine
DX: G31.09 Other frontotemporal neurocognitive disorder (principal); G93.49 Other encephalopathy; F02.81 Dementia in other diseases classified elsewhere, unspecified severity, with behavioral disturbance; E86.0 Dehydration; F41.9 Anxiety disorder, unspecified; F32.9 Major depressive disorder, single episode, unspecified; I10 Essential (primary) hypertension; E78.5 Hyperlipidemia, unspecified; N40.0 Benign prostatic hyperplasia without lower urinary tract symptoms; E53.8 Deficiency of other specified B group vitamins; Z79.899 Other long term (current) drug therapy
CPT/HCPCS: 36415; 70450; 71045; 80048; 80053; 81003; 82553; 82607; 82746; 83735; 84484; 85025; 93005; 96360; A4216; G8978-GP-CJ; G8979-GP-CI; J1650; J3420

== ENCOUNTER 2017-06-16 13:19 | Outpatient (CLI) | payer MEDICARE, MEDICAID ==
--- NOTE | 2017-06-16 15:32 | PET ---
PET CT: Date: 06/16/17 HISTORY: Frontotemporal dementia. TECHNIQUE: A PET CT was performed from the skull base through the mid thigh after administration of 6.99 mCi of [id number]. FINDINGS: There is symmetric metabolic activity within the brain. No significant decreased metabolic activity i s seen in the frontal lobes or temporal lobes when compared to the parietal or occipital lobes. IMPRESSION: No significant decreased metabolic activity in the frontotemporal lobes of the brain. POS: [facility]
== END 2017-06-16 13:20 | disposition home or self-care (01) ==
LOC: PET 13:19
PROVIDERS: ATTEND Psychiatry & Neurology Neurology
DX: G31.09 Other frontotemporal neurocognitive disorder (principal)
CPT/HCPCS: 78608; A9552

== ENCOUNTER 2017-11-12 14:01 | Emergency (ER) | payer MEDICARE, MEDICAID ==
[2017-11-12 14:37] LABS: Bilirubin Negative (Negative); Blood, Urine Moderate (Negative); Clarity CLOUDY (Clear); Glucose, Urine (Dipstick) Negative (Negative); Leukocyte Large (Negative); Nitrite Negative (Negative); Protein, Urine (Dipstick) Negative (Neg-Trace); Specific Gravity, Urine 1.012 (1.002-1.036); Urobilinogen 0.2 mg/dL (0.2-1.0); pH, Urine 5.5 (5.0-9.0)
[2017-11-12 14:39] LABS: Bacteria/HPF 2+ HPF (None Seen); Hyaline Casts/LPF 4-6 HYALINE CAST LPF (0-3 Hyaline); Pathc Cast-AUWi Flag 0.43 (0-2.49); Squamous Epithelial None Seen HPF (0-3)
--- NOTE | 2017-11-12 15:35 | CT ---
CT ABDOMEN AND PELVIS WITHOUT CONTRAST STONE PROTOCOL: Date: 11/12/17 HISTORY: Abdominal pain. COMPARISON: CT abdomen and pelvis without contrast stone protocol dated 06/06/12. FINDINGS: The lung bases are clear. No pericardial effusion. There are numerous calculi throughout the left renal collecting system. There is casting of the left superior renal patricia with calculus, which measures 1.0 x 0.6 cm. A 4.0 mm calculus is present in the inferior pole of the left renal collecting system. There is also another 4.0 mm calculus in the infer ior pole left renal collecting system. No right-sided renal collecting system calculus is present. The prostate is markedly enlarged. Numerous mildly prominent ileocolic lymph nodes are present. There are hyperdense tortuous vessels of the ascending colon and cecum. The appendix is visualized and is normal. No cecal mass is visualized. The aortoiliac contour is nonaneurysmal. IMPRESSION: 1. Extensive left-sided nephrolithiasis without evidence of a recently passed stone. No hydrouretero nephrosis. 2. Numerous ileocolic lymph nodes, as well as tortuous and distended draining vein and enlarged righ t-sided ileocolic artery. Mesenteric AV malformation is a possibility. 3. Very large prostate. POS: [facility]
[2017-11-12 15:48] LABS: #Basophils 0.1 thou/uL (0.0-0.2); #Eosinphils 0.3 thou/uL (0.0-0.7); #Lymphocytes 1.7 thou/uL (1.20-3.40); #Neutrophils 8.2 thou/uL (1.40-6.50); %Basophils 0.5 % (0.0-1.0); %Eosinophils 2.9 % (0.0-10.0); %Monocytes 8.7 % (0.0-10.0); %Neutrophils 72.9 % (42.0-75.0); Hemoglobin 14.6 g/dL (14.0-18.0); Mean Corpuscular HGB CONC 34.1 g/dL (32.0-36.0); Mean Corpuscular Hemoglobin 32.2 pg (27.0-31.0); Mean Corpuscular Volume 94.4 fL (78.0-98.0); Mean Platelet Volume 6.9 fL (7.4-10.4); Platelet Count 209 thou/uL (130-400); RBC Distribution Width 11.9 % (11.5-14.5); Red Blood Cell (RBC) Count 4.52 mill/uL (4.70-6.10); White Blood Cell (WBC) Count 11.3 thou/uL (4.8-10.8)
[2017-11-12 16:10] LABS: ALT (SGPT) 11 U/L (8-55); AST (SGOT) 15 U/L (5-34); Albumin 3.6 g/dL (3.4-4.8); Alkaline Phosphatase 97 U/L (40-150); Anion Gap 11 mmol/L (10-20); BUN (Urea Nitrogen) 25 mg/dL (8.4-25.7); Bilirubin, Total 0.5 mg/dL (0.2-1.2); Calc. Creatinine Clearance 0 mL/min (70-130); Calcium 8.9 mg/dL (7.8-10.44); Carbon Dioxide 27 mmol/L (23-31); Chloride 105 mmol/L (98-107); Estimated GFR-MDRD 83; Glucose 108 mg/dL (83-110); Potassium 4.1 mmol/L (3.5-5.1); Protein, Total 6.6 g/dL (5.8-8.1); Sodium 139 mmol/L (136-145)
[2017-11-12] MEDS ORDERED: Lidocaine 1% (PF) 30 ML VIAL ONE (16:40)
[2017-11-12] MEDS ORDERED: cefTRIAXone\\ROCEPHIN 1 GM VIAL ONE (16:40)
== END 2017-11-12 17:34 | disposition home or self-care (01) ==
LOC: ERS 14:01
DX: N39.0 Urinary tract infection, site not specified (principal); E78.5 Hyperlipidemia, unspecified
CPT/HCPCS: 36415; 74176; 80053; 81003; 81015; 85025; 87077; 87086; 87186; 96372; J0696; J2001

== ENCOUNTER 2017-11-13 09:34 | Outpatient (CLI) | payer MEDICARE, MEDICAID ==
--- NOTE | 2017-11-13 15:41 | PET ---
RADIONUCLIDE WHOLE BODY PET SCAN WITH CT ATTENUATION CORRECTION AND SPECT IMAGING: HISTORY: Melanoma of scalp. Initial staging. FINDINGS: Physiologic uptake of radiotracer is present throughout the enteric system and along each urinary tra ct. Significant muscular uptake is also evidence at the lower legs and forearm with a small focus at the muscles of phonation. No pathologic foci of radiotracer uptake are apparent. Nondiagnostic CT attenuation correction images again show calcifications within the nondilated left r enal collecting system, detailed on CT from 11/12/17. There is calcification in the arterial structur es. Prominent degenerative changes lumbar spine. IMPRESSION: 1. No scintigraphic evidence of metastatic disease. 2. Atherosclerosis. 3. Nonobstructing left renal calculi. POS: [facility]
== END 2017-11-13 09:35 | disposition home or self-care (01) ==
LOC: PET 09:34 → EDSTATUS 09:45
PROVIDERS: ATTEND Dermatology
DX: C43.4 Malignant melanoma of scalp and neck (principal); N20.0 Calculus of kidney; I70.90 Unspecified atherosclerosis
CPT/HCPCS: 78816; A9552

== ENCOUNTER 2018-01-20 06:45 | Observation (INO) | payer MEDICARE, MEDICAID ==
[2018-01-20 07:53] LABS: Hemoglobin 15.5 g/dL (14.0-18.0); Mean Corpuscular HGB CONC 32.5 g/dL (32.0-36.0); Mean Corpuscular Hemoglobin 30.5 pg (27.0-31.0); Mean Corpuscular Volume 93.8 fL (78.0-98.0); Mean Platelet Volume 6.7 fL (7.4-10.4); Platelet Count 299 thou/uL (130-400); RBC Distribution Width 11.5 % (11.5-14.5); Red Blood Cell (RBC) Count 5.08 mill/uL (4.70-6.10); White Blood Cell (WBC) Count 7.9 thou/uL (4.8-10.8)
[2018-01-20 08:03] LABS: Anion Gap 11 mmol/L (10-20); BUN (Urea Nitrogen) 13 mg/dL (8.4-25.7); Calc. Creatinine Clearance 0 mL/min (70-130); Calcium 9.2 mg/dL (7.8-10.44); Carbon Dioxide 26 mmol/L (23-31); Chloride 107 mmol/L (98-107); Estimated GFR-MDRD 90; Glucose 108 mg/dL (83-110); Potassium 4.1 mmol/L (3.5-5.1); Sodium 140 mmol/L (136-145)
[2018-01-20 08:04] LABS: PTT 36.8 SEC (22.9-36.1); Prothrombin Time 13.2 SEC (12.0-14.7)
[2018-01-20 08:27] LABS: Platelet Count 299 thou/uL (130-400)
[2018-01-20] MEDS ORDERED: cefTRIAXone\\ROCEPHIN 2 GM in Sodium Chloride 0.9% 100 ML IVPB ONE (08:30)
[2018-01-20] MEDS ORDERED: PHENYLEPHRINE-NS 100 MCG/ML 10 ML SYRINGE ONE ×2 (08:56→08:59)
[2018-01-20] MEDS ORDERED: PROPOFOL 200 MG/20 ML VIAL ONE ×2 (08:56→08:59)
[2018-01-20] MEDS ORDERED: ePHEDrine/0.9% NaCl/PF SYRINGE 50 mg/10 ml ONE ×2 (08:56→08:59)
[2018-01-20] MEDS ORDERED: Dexamethasone 20 MG/5 ML VIAL ONE (08:56)
[2018-01-20] MEDS ORDERED: Succinylcholine Chloride 20 MG/ML 10 ml SYRINGE FS ONE (08:59)
[2018-01-20] MEDS ORDERED: Fentanyl 100 MCG/2 ML VIAL ONE (09:02)
--- NOTE | 2018-01-20 09:22 | RAD ---
AP ABDOMINAL RADIOGRAPH: Date: 01/20/18 HISTORY: Preoperative evaluation. COMPARISON: 01/13/18. FINDINGS: Again noted are calcifications overlying the left renal shadow consistent with multiple left renal ca lculi, previously seen on prior exam and overall unchanged. Right renal shadow is mostly obscured due to overlying bowel. Bowel gas pattern is nonspecific. Degenerative changes again seen in the spine. No other interval change. IMPRESSION: Stable left nephrolithiasis. POS: [facility]
[2018-01-20] MEDS ORDERED: Iothalamate Meglumine 60% 50 ML VIAL FS ONE ×2 (09:40→17:30)
--- NOTE | 2018-01-20 11:42 | OP ---
DATE OF PROCEDURE: 01/20/2018 PREOPERATIVE DIAGNOSES: Recurrent urinary tract infections and left renal stone. POSTOPERATIVE DIAGNOSES: Recurrent urinary tract infections and left renal stone. PROCEDURE PERFORMED: Left extracorporeal shock wave lithotripsy, cystoscopy and left stent. SURGEON: Emir Rivera M.D. ANESTHESIA: General. ESTIMATED BLOOD LOSS: Not recorded. FINDINGS: There is an 11 mm left upper pole stone treated with 2500 shocks at maximum level of 4 wit h good fragmentation. Because the patient has been presenting with recurrent Proteus urinary tract i nfections, I elected to place a stent to be sure he has no evidence of obstruction while trying to pa ss these stone fragments. A 4.8 x 26 cm double-J stent was passed. A string was left attached to it . 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 His bladder was otherwise free of tumor, foreign body or stone. OPERATIVE TECHNIQUE: I have obtaining written and verbal consent from the patient. After receiving IV Rocephin, he was taken to the operating suite. He was placed in a supine position on the treatmen t table. PlexiPulses were placed on his lower extremities and turned on. He was given a general ane sthetic and oral intubation. He was coupled to the lithotripsy unit and the stone was placed in the treatment focal point. Shockwave therapy was commenced. After a couple 100 shocks, a 5-minute pause was given. We then restarted the lithotripsy increasing the level to 4. Fluoroscopy was used inter mittently to document stone fragmentation and reposition as necessary. After 2500 shocks, he was azalea agata in the dorsal lithotomy position and sterilely prepped and draped. Cystoscopy was performed with a 22-Burmese sheath. This was well lubricated and passed under direct vision through the male urethr a and into the urinary bladder with the aid of a video camera monitor and a 30-degree lens. The blad soham was filled and emptied and examined with both the 30 and the 70-degree lens. Using the 30-degree lens, we then were able to find the left ureteral orifice. It was a little difficult to find becaus e of the median lobe. Once we found that we were able to place an open-ended catheter just into the ureteral orifice, we then used an angle tipped Glidewire to manipulate up the ureter. The open-ended catheter was advanced up to the area of the renal pelvis. The Glidewire was removed and contrast wa s injected filling out the collecting system. There was no evidence of any abnormality apart from so me filling defects in the upper pole from where the stone fragments were. The guidewire was then rep laced. The open-ended catheter was removed and then a 4.8 x 26 cm double-J stent was placed over the guidewire and pushed up into place with aid of a pusher, so its proximal end coiled into renal pelvi s and its distal end coiled in the bladder when the wire was removed. The instruments were removed. The bladder was drained. The string was cut so it was not exiting too far out the urethral meatus. He was taken out of the dorsal lithotomy position, awakened, extubated and taken by stretcher to the recovery room.
[2018-01-20] MEDS ORDERED: Sodium Chloride 0.9% 10 ML ONE (15:13)
[2018-01-20 17:08] LABS: Hemoglobin 13.6 g/dL (14.0-18.0)
[2018-01-20] MEDS ORDERED: Promethazine HCl 25 MG/ML VIAL IM PRN (19:04)
[2018-01-20] MEDS ORDERED: Ondansetron HCl/PF 4 MG/2 ML Vial IVP PRN (19:04)
[2018-01-20] MEDS ORDERED: Promethazine HCl 25 MG/ML VIAL SLOW IVP PRN (19:04)
[2018-01-20] MEDS ORDERED: B & O PR PRN (19:19)
[2018-01-20 20:52] VITALS: BMI 26.2
[2018-01-20] MEDS: Dextrose 5%-Lactated Ringers 1,000 ML IV SCH (21:12)
[2018-01-20] MEDS: traMADol HCl 50 MG TAB PO PRN (21:12)
--- NOTE | 2018-01-21 02:33 | OP ---
DATE OF PROCEDURE: 01/20/2018 PREOPERATIVE DIAGNOSIS: Persistent hematuria after ESWL, cystoscopy, and left stent earlier today. POSTOPERATIVE DIAGNOSIS: Persistent hematuria after ESWL, cystoscopy, and left stent earlier today. PROCEDURE PERFORMED: Cystoscopy, clot evacuation, fulguration of bleeding of the prostatic urethra a nd bladder neck region on the left side. SURGEON: Emir Rivera M.D. ANESTHESIA: General. ESTIMATED BLOOD LOSS: Large amount of clot within the bladder was not significantly actively bleedin g currently, the areas that were bleeding were easily controlled with fulguration with a gyrus. DRAINS PLACED: A 22-Austrian Davenport 3-way with 30 mL in the balloon hooked up to a slow continuous blad soham irrigation. OPERATIVE TECHNIQUE: After obtaining written and verbal consent from the patient, he was taken to [facility] operating suite. He was placed in the supine position on the treatment table. He was given a gene ral anesthetic, oral intubation. He was placed in the dorsal lithotomy position, sterilely prepped a nd draped after his Davenport catheter was removed. Cystoscopy was performed with a 22-Austrian sheath. T his revealed a large amount of clot in the urinary bladder. We removed the instruments and passed a 26-Austrian resectoscope sheath with [place] obturator through the male urethra into the bladder. W e then elliked out the large amount of clots until it was clear then we reinspected and found bleedin g on the left side of the prostate and the bladder neck region. We cauterized this with a gyrus. On ce this was completed, we removed the instruments, passed the Davenport catheter. Urine was clear. Irri gated urine remained clear. Hooked up to continuous bladder irrigation at a slow drip. He was taken out of dorsal lithotomy position, awakened, extubated, and taken by stretcher to the recovery room.
[2018-01-21 05:55] LABS: Hemoglobin 10.9 g/dL (14.0-18.0)
[2018-01-21] MEDS: Amoxicillin/Potassium Clav 500 MG TAB PO SCH ×3 (05:56→20:46)
[2018-01-21] MEDS: traMADol HCl 50 MG TAB PO PRN ×2 (05:56→17:13)
[2018-01-21] MEDS ORDERED: cefTRIAXone\\ROCEPHIN 1 GM in Sodium Chloride 0.9% 100 ML IVPB SCH (08:00)
[2018-01-21] MEDS: Finasteride 5 MG TAB PO SCH (08:26)
[2018-01-21] MEDS: Tamsulosin HCl 0.4 MG CAP PO SCH (08:26)
[2018-01-21] MEDS: Docusate 100 MG CAP PO SCH ×2 (08:26→20:46)
[2018-01-21] MEDS: guaiFENesin/DM ER PO SCH ×2 (08:26→20:46)
[2018-01-21] MEDS: Furosemide 20 MG TAB PO SCH (08:26)
[2018-01-21] MEDS: FLUoxetine HCl 20 MG CAP PO SCH (08:26)
[2018-01-21] MEDS: Cyanocobalamin (Vitamin B-12) 1,000 MCG TAB PO SCH (08:26)
[2018-01-21] MEDS ORDERED: Prevnar 13-Val Conj/PF 0.5 ML SYRINGE IM ONE (09:00)
[2018-01-21] MEDS: Multivitamin W/ Minerals 1 TAB PO SCH (10:44)
[2018-01-21] MEDS: Loratadine 10 MG TAB PO SCH (10:44)
[2018-01-21] MEDS ORDERED: Ferrous Sulfate 325 MG TAB PO SCH (10:45)
[2018-01-21] MEDS: Dextrose 5%-Lactated Ringers 1,000 ML IV SCH (11:41)
--- NOTE | 2018-01-21 14:53 | PRG ---
DATE OF SERVICE: 01/21/2018 SUBJECTIVE: This is a patient that I saw and did surgery on yesterday. He ended up having to be adm itted for 23-hour observation. He is an 82-year-old white male. He came in with a history of recurr ent Proteus infection and over 1 cm left upper pole renal calculus. His preoperative blood work was all normal. He received antibiotics. He had a lithotripsy done. Because he has had recurrent Prote us infections and this is presumed to possibly be an infected stone, a stent was placed. He was to g o home yesterday and did actually fine throughout the day waiting for his ride to get him back to the nursing center. Late afternoon, it was noted that he was not urinating very well and the catheter _ ____ lot of blood and urine. I saw him yesterday probably around 4:00 at afternoon and we had to rem ove the 18-Faroese catheter. We passed a 22-Faroese, one that larger holes in. It was a 3-way c atheter and we used this to irrigate a fair amount of clot out, start him on continuous bladder irrig ation. Hemoglobin, which was 15.5, preop was 13.6, but he is a little tachycardic. Could not get hi m clear even on a drip, so we took him back on a drip of CBI. We irrigated him probably with 2-1/2 l iters of sterile saline. For this reason, we took him back to the OR last night, evacuated more bloo d out of his bladder and then controlled some small little bleeding vessels that were on the prostate on the left side of the prostatic urethra towards the bladder neck. His urine became clear and the catheter was replaced and has remained clear on continuous bladder irrigation overnight and remains c lear today, also with CBI being stopped and the port being plugged. His vital signs are currently fi ne. His hemoglobin was over 10. I think some of this is related to probably dehydration when he cam e in being n.p.o. and then rehydration as well as blood loss yesterday, which was probably a fair alexander unt. He is, at this point, nearing getting ready to return to his nursing center. We are going to d iscontinue the Davenport today and make sure he can pee okay before he does that. He has been on antibio tics since yesterday. He received another dose today, so he does not need any further antibiotics. Final disposition will be made as to where he goes once he has urinated and once psychiatric social worker supervisor have made sure that he is acceptable to go back to the nursing center.
[2018-01-21] MEDS ORDERED: Famotidine 20 MG TAB PO SCH (21:00)
[2018-01-22] MEDS: Amoxicillin/Potassium Clav 500 MG TAB PO SCH ×2 (05:46→13:32)
[2018-01-22] MEDS: Dextrose 5%-Lactated Ringers 1,000 ML IV SCH ×2 (07:57→13:34)
[2018-01-22] MEDS: traMADol HCl 50 MG TAB PO PRN (08:23)
[2018-01-22] MEDS: Cyanocobalamin (Vitamin B-12) 1,000 MCG TAB PO SCH (08:24)
[2018-01-22] MEDS: Finasteride 5 MG TAB PO SCH (08:24)
[2018-01-22] MEDS: Tamsulosin HCl 0.4 MG CAP PO SCH (08:24)
[2018-01-22] MEDS: Docusate 100 MG CAP PO SCH (08:25)
[2018-01-22] MEDS: Loratadine 10 MG TAB PO SCH (08:25)
[2018-01-22] MEDS: Multivitamin W/ Minerals 1 TAB PO SCH (08:25)
[2018-01-22] MEDS: FLUoxetine HCl 20 MG CAP PO SCH (08:25)
[2018-01-22] MEDS: Furosemide 20 MG TAB PO SCH (08:25)
[2018-01-22] MEDS ORDERED: Ferrous Sulfate 325 MG TAB PO SCH (09:00)
[2018-01-22] MEDS: guaiFENesin/DM ER PO SCH (09:58)
[2018-01-22 15:51] VITALS: BP 133/80; TEMP 98
== END 2018-01-22 16:21 ==
LOC: SDC 06:45 → SURG A 20:43
PROVIDERS: ADMIT Urology; ATTEND Urology
PROC: 0TF4XZZ Fragmentation in Left Kidney Pelvis, External Approach (ICD-10-PCS; principal; 2018-01-20)
PROC: 0T778DZ Dilation of Left Ureter with Intraluminal Device, Via Natural or Artificial Opening Endoscopic (ICD-10-PCS; 2018-01-20)
PROC: 0TCB8ZZ Extirpation of Matter from Bladder, Via Natural or Artificial Opening Endoscopic (ICD-10-PCS; 2018-01-20)
PROC: 0W3R8ZZ Control Bleeding in Genitourinary Tract, Via Natural or Artificial Opening Endoscopic (ICD-10-PCS; 2018-01-20)
DX: N20.0 Calculus of kidney (principal); N39.0 Urinary tract infection, site not specified; B96.4 Proteus (mirabilis) (morganii) as the cause of diseases classified elsewhere; N99.820 Postprocedural hemorrhage of a genitourinary system organ or structure following a genitourinary system procedure; Z79.2 Long term (current) use of antibiotics; Z79.899 Other long term (current) drug therapy
CPT/HCPCS: 50590; 51798; 52001; 52332; 53899; 74018; 80048; 85014; 85018 ×2; 85027; 85576; 85610; 85730; 86850; 86900; 86901; 96361 ×3; 96365; C1758; C1769; G0378; 36415; 90471; 90670; G0009; J0696; J1100; J2704; J3010; J7050; Q9961

== ENCOUNTER 2018-04-29 15:10 | Emergency (ER) | payer MEDICARE, MEDICAID ==
--- NOTE | 2018-04-29 16:05 | RAD ---
CHEST 1 VIEW: HISTORY: Fever. COMPARISON: Radiograph 05/08/2017. FINDINGS: Heart size is mildly enlarged. No pneumothorax. Scarring in both lung bases. No acute osseous abnormality. IMPRESSION: No acute intrathoracic abnormality. POS: [facility]
[2018-04-29 16:23] LABS: ALT (SGPT) 13 U/L (8-55); AST (SGOT) 33 U/L (5-34); Albumin 3.6 g/dL (3.4-4.8); Alkaline Phosphatase 87 U/L (40-150); Anion Gap 14 mmol/L (10-20); BUN (Urea Nitrogen) 16 mg/dL (8.4-25.7); Bilirubin, Total 0.4 mg/dL (0.2-1.2); Calc. Creatinine Clearance 0 mL/min (70-130); Calcium 8.3 mg/dL (7.8-10.44); Carbon Dioxide 24 mmol/L (23-31); Chloride 102 mmol/L (98-107); Estimated GFR-MDRD 76; Globulin 2.5 g/dL (2.4-3.5); Glucose 94 mg/dL (83-110); Potassium 3.7 mmol/L (3.5-5.1); Protein, Total 6.1 g/dL (5.8-8.1); Sodium 136 mmol/L (136-145)
[2018-04-29 16:24] LABS: Hemoglobin 14.5 g/dL (14.0-18.0); Mean Corpuscular HGB CONC 32.7 g/dL (32.0-36.0); Mean Corpuscular Hemoglobin 30.6 pg (27.0-31.0); Mean Corpuscular Volume 93.7 fL (78.0-98.0); Platelet Count 139 thou/uL (130-400); Red Blood Cell (RBC) Count 4.73 mill/uL (4.70-6.10); White Blood Cell (WBC) Count 4.7 thou/uL (4.8-10.8)
[2018-04-29 16:50] LABS: Band 2 % (5-11); Lymphocytes 22 % (21-51); MDiff Complete? YES; Monocytes 6 % (0-10); Neutrophil 70 % (42-75); Platelet Morphology Comment Appears Adequate
[2018-04-29 17:19] LABS: Bilirubin Negative (Negative); Blood, Urine Negative (Negative); Clarity CLEAR (Clear); Glucose, Urine (Dipstick) Negative (Negative); Leukocyte Negative (Negative); Nitrite Negative (Negative); Protein, Urine (Dipstick) Negative (Neg-Trace); Specific Gravity, Urine 1.016 (1.002-1.036); pH, Urine 5.5 (5.0-9.0)
== END 2018-04-29 19:20 | disposition home or self-care (01) ==
LOC: ERS 15:10
DX: J10.1 Influenza due to other identified influenza virus with other respiratory manifestations (principal); E86.0 Dehydration; N40.0 Benign prostatic hyperplasia without lower urinary tract symptoms; E78.5 Hyperlipidemia, unspecified; F03.90 Unspecified dementia, unspecified severity, without behavioral disturbance, psychotic disturbance, mood disturbance, and anxiety; F32.9 Major depressive disorder, single episode, unspecified; Z79.899 Other long term (current) drug therapy; Z87.891 Personal history of nicotine dependence
CPT/HCPCS: 36415; 71045; 80053; 81003; 83605; 85025; 87040; 87804; 96360